=== PATIENT | female | born 1950 | race Caucasian/White ===

== ENCOUNTER → 2019-02-19 | Outpatient (CLI) | payer OTHER, MEDICAID ==
[~2019-02-19] MED LIST: ACETAMINOPHEN 325 MG TABLET PO ONE; diphenhydrAMINE HCL 25 MG CAPSULE PO ONE
[2019-02-19 15:59] LABS: HEMOGLOBIN 6.5 g/dL (12.0-15.5)
[2019-02-19 19:20] VITALS: BP 122/57
[2019-02-19 19:55] VITALS: BP 104/56
[2019-02-19 20:55] VITALS: BP 99/57
[2019-02-19 21:55] VITALS: BP 97/52
[2019-02-19 23:05] VITALS: BP 111/63
== END | disposition home or self-care (01) ==
LOC: OPINF 14:56
PROVIDERS: ATTEND Physician Assistant
DX: D64.9 Anemia, unspecified (principal)
CPT/HCPCS: 36415; 85014; 85018; 86850; 86900; 86901; 86920; P9016; Q0163; 36430